=== PATIENT | male | born 1975 | race Hispanic/Latino ===

== ENCOUNTER 2018-10-20 15:02 | Emergency (ER) | payer SELFPAY ==
[2018-10-20] MEDS ORDERED: Ketorolac Tromethamine 30 MG/ML VIAL ONE (17:05)
--- NOTE | 2018-10-20 17:50 | CT ---
CT thoracic spine noncontrast: DATE: 10/20/2018 HISTORY: 43-year-old male status post acute thoracic spine traumatic pain due to fall. FINDINGS: Vertebral body heights are maintained. No fracture is visualized. No edema or hematoma in the periver tebral space. No pleural effusion. No consolidation in the lung bases. IMPRESSION: No acute fracture.
== END 2018-10-20 18:12 | disposition home or self-care (01) ==
LOC: ERS 15:02
DX: M54.6 Pain in thoracic spine (principal); W01.0XXA Fall on same level from slipping, tripping and stumbling without subsequent striking against object, initial encounter; Y99.0 Civilian activity done for income or pay
CPT/HCPCS: 72128; 96372; J1885